=== PATIENT | female | born 1985 | race Caucasian/White ===

== ENCOUNTER 2023-09-10 18:26 | Emergency (ER) | payer OTHER, SELFPAY ==
--- NOTE | 2023-09-10 19:10 | ED_ITS ---
HPI - Skin/Abscess/Foreign Bdy General Chief complaint: Extremity Injury, Upper Stated complaint: finger lac Time Seen by Provider: 09/10/23 20:38 Source: patient and family Mode of arrival: ambulatory Limitations: no limitations History of Present Illness HPI narrative: Patient comes to the emergency room complaining of a laceration to the right ring finger. Patient states that she was cooking dinner, accidentally lacerated the dorsal aspect of the 4th finger with a can. No other injuries. Patient does not know if she is up-to-date with her tetanus shot Related Data Previous Rx's Medication Instructions Recorded ibuprofen 600 mg tablet 600 mg PO TID PRN fever or pain 09/10/23 #20 tabs Allergies Allergy/AdvReac Type Severity Reaction Status Date / Time cephalexin [From Keflex] Allergy Anaphylaxis Verified 09/10/23 19:15 Review of Systems Review of Systems: Constitutional : No Weight loss, No Fever, No Chills, No Night Sweats, No Fatigue, No Malaise ENT/Mouth : No Hearing loss, No Ear Pain, No Nasal Congestion, No Sinus Pain, No Hoarseness, No sore throat, No Rhinorrhea, No Swallowing Difficulty Eyes: No Eye Pain, No Swelling, No Redness, No Foreign Body, No Discharge, No Vision Changes Cardiovascular : No Chest Pain, No SOB, No Dyspnea on Exertion, No Orthopnea, No Edema, No Palpitations Respiratory : No Cough, No Sputum, No Wheezing, No Smoke Exposure, No Dyspnea Gastrointestinal : No Nausea, No Vomiting, No Diarrhea, No Constipation, No abdominal Pain, No Hematochezia, No Melena Genitourinary : no irregular bleeding, No Dysuria, No Urinary Frequency, No Hematuria, No Urinary Incontinence, No Urgency, No Flank Pain, No Urinary Flow Changes, No Hesitancy Musculoskeletal : No joint pain, No Myalgias, No Joint Swelling Skin : Complaining of a laceration to the for finger of the right hand Neuro : No Weakness, No Numbness, No Paresthesias, No Loss of Consciousness, No Dizziness, No Headache Psych : No Anxiety/Panic, No Depression, No SI/HI/AH/VH, No Social Issues, Heme/Lymph: No Bruising, No Bleeding,No Lymphadenopathy Endocrine : No Polyuria, No Polydipsia, No Temperature Intolerance Physical Exam Vital Signs: Vital Signs: Last Vital Signs Temp 97.9 F 09/10/23 19:12 Pulse 83 09/10/23 19:12 Resp 18 09/10/23 19:12 BP 107/80 09/10/23 19:12 Pulse Ox 99 09/10/23 19:12 O2 Del Method Room Air 09/10/23 19:12 BMI result Body Mass Index 34.0 Const: Other: Appearance: Alert. Oriented X3. No acute distress. Eyes: Pupils equal, round and reactive to light. ENT: Pharynx normal. Neck: Normal inspection. Neck supple. No lymph nodes noted. No crepitus CVS: Normal heart rate and rhythm. Pulses normal. Normal S1 and S2 Respiratory: No respiratory distress. Breath sounds normal. No Wheezing. No rales Abdomen: Soft and nontender. No rigidity. No distention. Skin: Skin warm and dry. There is a 1 cm laceration to the dorsal aspect of the 4th finger of the right hand, finger explored under a bloodless field Extremities: No lower extremity edema. No Lacerations. No Rash. Patient is able to flex and extend all fingers of the the right hand, no tendons exposed or lacerated Neuro: Oriented X 3. No motor deficit. No sensory deficit. Moving all extremities. No slurred speech. CN 2 through 12 grossly intact Psych: calm, cooperative, normal affect Course Course Course Narrative: RME: 38yo F w/no sig PMHx c/o laceration to R 4th digit s/p cooking and slicing w/can accidentally [employer]. Tetanus unknown 1.5cm lac to R lateral 4th digit will need suture repair Full HPI, ROS and PE to be performed by primary ED provider. Medications Administered Discontinued Medications Generic Name Dose Route Start Last Admin Trade Name Freq PRN Reason Stop Dose Admin Diphtheria/Tetanus/Acell Pertussis 0.5 ml 09/10/23 19:11 09/10/23 19:33 Diphth,Pertus(Acell),Tet Adult 0.5 Ml Syringe IM 09/10/23 19:12 0.5 ml .ONCE ONE Administration Medical Decision Making Medical Decision Making [facility] Narrative: -patient became nauseous during the procedure, patient was given sublingual Zofran. Otherwise, no complications. Procedures Laceration Laceration 1: Site: hand Side (If applicable): right Size (cm): 1 Description: linear and irregular Depth: simple, single layer Local Anesthetic: lidocaine 1% Amount of anesthesia used (mL): 2 Pre-repair: wound explored Skin layer closed with: nylon Size (cm): 5-0 Number of sutures: 4 Technique: simple, interrupted Discharge Plan Discharge Clinical Impression: Laceration of finger Patient Disposition: Home, Self-Care Instructions: Finger Laceration (ED) Additional Instructions: Your stitches need to be removed in 7-10 days. Please follow-up with your primary care physician tomorrow. If you have any worsening or new symptoms, please return to the emergency room or call 911 Prescriptions: New ibuprofen 600 mg tablet 600 mg PO TID PRN (Reason: fever or pain) Qty: 20 0RF Stand Alone Forms: Work/School Release
[2023-09-10 19:12] VITALS: BP 107/80; PULSE 83; RESP 18; TEMP 36.6; O2SAT 99; BMI 34.0
[2023-09-10] MEDS: Diphth,Pertus(ACell),Tet Adult 0.5 ML SYRINGE IM (19:33)
[2023-09-10] MEDS: Lidocaine HCl 1 % MPF 5 ML VIAL INFILTRATI (20:43)
[2023-09-10] MEDS: Ondansetron ODT 4 MG TAB.RAPDIS TRANSLINGU (20:54)
--- NOTE | 2023-09-10 20:55 | PC.NURSE ---
md noriega at bedside. ordered to give zofran odt stat for pt to tolerate procedure at bedside as pt became nauseous. given w at bedside- verified med type and patient prior to giving. toleratring well.
== END 2023-09-10 21:28 | disposition home or self-care (01) ==
PROVIDERS: Emergency Provider Emergency Medicine
DX: S61.214A Laceration without foreign body of right ring finger without damage to nail, initial encounter (principal); W26.8XXA Contact with other sharp object(s), not elsewhere classified, initial encounter; Y93.G1 Activity, food preparation and clean up; Y92.010 Kitchen of single-family (private) house as the place of occurrence of the external cause; Y99.9 Unspecified external cause status
CPT/HCPCS: 12001; 90471; 90715; 99282; 99284